=== PATIENT | male | born 1970 | race Caucasian/White ===

== ENCOUNTER 2016-07-23 05:54 | Inpatient (IN) | payer OTHER ==
[~2016-07-23] VITALS: Ht 182.9 cm; Wt 98.3 kg
[2016-07-23] MEDS ORDERED: CHLORHEXIDINE GLUCONATE 2 % 1 PACK (2 CLOTHS) TOPICAL PRN (06:30)
[2016-07-23] MEDS ORDERED: SODIUM CHLORID 0.9% 500 ML IV PRN (06:30)
[2016-07-23] MEDS ORDERED: LACTATED RINGER'S 1000 ML IV PRN (06:30)
[2016-07-23] MEDS ORDERED: ceFAZolin 2 GM PREMIX 50 ML IV SCH (06:30)
[2016-07-23] MEDS ORDERED: POVIDONE IODINE 5% (ANTISEPSIS KIT) 4 APPLICATIONS EACH NARE PRN (06:30)
[2016-07-23] MEDS ORDERED: INSULIN HUMAN REGULAR 1,000 UNITS/10 ML VIAL SQ PRN (06:30)
[2016-07-23] MEDS ORDERED: METOPROLOL TARTRATE 25 MG TAB PO PRN (06:30)
[2016-07-23 06:50] VITALS: BP 120/84; PULSE 86; RESP 20; TEMP 98.1; O2SAT 96
[2016-07-23] MEDS ORDERED: ACETAMINOPHEN 1000 MG/100 ML VIAL IV ONE (06:50)
[2016-07-23 07:09] LABS: PROTHROMBIN TIME - PATIENT 11.5 SEC (9.8-11.6)
[2016-07-23] MEDS ORDERED: MIDAZOLAM HCL 2 MG/2 ML VIAL ONE (07:38)
[2016-07-23] MEDS ORDERED: FAMOTIDINE 20 MG/2 ML VIAL ONE (07:38)
[2016-07-23] MEDS ORDERED: ONDANSETRON HCL 4 MG/2 ML VIAL IV PUSH ONE (12:00)
[2016-07-23] MEDS ORDERED: PHENYLEPH/NS 1000 MCG/10 ML SYR IV ONE (12:00)
[2016-07-23] MEDS ORDERED: MANNITOL 12.5 GM/50 ML VIAL IV ONE (12:00)
[2016-07-23] MEDS ORDERED: NORMOSOL R INJ 3,000 ML IV ONE (12:00)
[2016-07-23] MEDS ORDERED: LACTATED RINGER'S 1000 ML INJ 3,000 ML IV ONE (12:00)
[2016-07-23] MEDS ORDERED: PROPOFOL 200 MG/20 ML AMP IV ONE (12:00)
[2016-07-23 12:25] LABS: BLOOD GAS BASE EXCESS -1.2 mmol/L (-2-2); BLOOD GAS CARBOXYHEMOGLOBIN 1.5 % (0-4); BLOOD GAS HCO3 23 mmol/L (22-26); BLOOD GAS METHEMOGLOBIN 1.4 % (0-2); BLOOD GAS O2 HGB SATURATION 96 % (90-100); BLOOD GAS OXYGEN CONTENT 18.2 Vol % (12.0-20.0); BLOOD GAS PCO2 42 mmHg (38-42); BLOOD GAS PO2 153 mmHg (61-120); BLOOD GAS TOTAL HGB 13.3 G/DL (12.0-16.0); CRITICAL VALUE NO; OXYGEN DEVICE OR; TEMP CORR TO 98.6; VENT SETTINGS OR
[2016-07-23 12:26] LABS: DRAW SITE ALINE; STAT YES
[2016-07-23] MEDS ORDERED: ceFAZolin INJ 1,000 MG VIAL IV ONE (12:30)
[2016-07-23 12:33] LABS: HEMATOCRIT 39.2 % (39.0-51.0); REVIEW FLAG FINAL
[2016-07-23] MEDS: SODIUM CHLOR 0.9% 1000 ML INJ 1,000 ML IV SCH ×2 (12:45→20:56)
[2016-07-23] MEDS ORDERED: fentaNYL CITRATE 250 MCG/5 ML AMP ONE (13:20)
[2016-07-23] MEDS ORDERED: *morphine SULFATE 8 MG/ML PERIprocedure ONLY ONE (13:57)
[2016-07-23] MEDS: ACETAMINOPHEN 1000 MG/100 ML VIAL IV SCH ×2 (14:00→20:54)
[2016-07-23] MEDS: PANTOPRAZOLE SODIUM 40 MG VIAL IV PUSH SCH (15:26)
[2016-07-23 16:00] VITALS: BP 98/61; PULSE 117; RESP 16; TEMP 96.7; O2SAT 90
[2016-07-23 16:58] VITALS: BP 108/57; PULSE 95; RESP 14; TEMP 98; O2SAT 95
[2016-07-23 17:30] VITALS: BP 106/65; PULSE 85; RESP 14; TEMP 99.3; O2SAT 96
[2016-07-23 18:08] LABS: AUTOMATED NEUTROPHIL # 12.6 TH/MM3 (1.8-7.7); HEMO FLAGS DIFF FINAL; LYMPH % 4.8 % (9.0-44.0); LYMPHOCYTE # 0.7 TH/MM3 (1.0-4.8); MEAN CELL VOLUME 86.3 FL (80.0-100.0); MEAN CORPUSCULAR HEMOGLOBIN 28.8 PG (27.0-34.0); MEAN CORPUSCULAR HGB CONC 33.4 % (32.0-36.0); MONO % 4.8 % (0.0-8.0); NEUT % 90.4 % (16.0-70.0); PLATELET COUNT 229 TH/MM3 (150-450); RED BLOOD COUNT 4.63 MIL/MM3 (4.50-5.90); RED CELL DISTRIBUTION WIDTH 13.2 % (11.6-17.2); WHITE BLOOD COUNT 13.9 TH/MM3 (4.0-11.0)
[2016-07-23 18:23] LABS: BICARBONATE 20.8 MEQ/L (21.0-32.0); POTASSIUM 4.6 MEQ/L (3.5-5.1)
[2016-07-23 20:00] VITALS: BP 126/73; PULSE 100; RESP 17; TEMP 97.5; O2SAT 93
[2016-07-23] MEDS: DOCUSATE SODIUM 100 MG CAP PO SCH (20:54)
[2016-07-23 21:34] VITALS: O2SAT 95
[2016-07-23] MEDS: ONDANSETRON HCL 4 MG/2 ML VIAL IV PUSH PRN (21:39)
[2016-07-23] MEDS: MORPHINE SULFATE 4 MG/ML INJ IV PRN (22:49)
--- NOTE | 2016-07-23 23:20 | MP ---
cc: SHADY JAFFE MD DATE OF SURGERY 07/23/16 PREOPERATIVE DIAGNOSIS Left lower pole renal mass POSTOPERATIVE DIAGNOSIS Left lower pole renal mass PROCEDURE PERFORMED Robotic-assisted laparoscopic left partial nephrectomy with intraoperative ultrasound SURGEON James Jaffe MD ANESTHESIA General COMPLICATIONS None. PREOPERATIVE ANTIBIOTICS Ancef 2 grams IV DRAINS 1. A 10-Irish LUNA drain. 2. 6 Irish Roa catheter gravity drainage. SPECIMENS Left renal mass for frozen and permanent BLOOD LOSS 300 mL FLUIDS 5 liters DISPOSITION Stable to recovery INDICATIONS The patient is a 45-year-old male who was found to have an incidental left renal mass. Treatment options were discussed including active surveillance versus radioablation versus cryoablation versus partial nephrectomy versus open radical nephrectomy. Advantages and disadvantages, potential side effects of each option were discussed. He elected to proceed with laparoscopic left partial nephrectomy. After risks, benefits and alternatives were explained to patient, patient would like to proceed. Informed consent was obtained. PROCEDURE IN DETAIL The patient was properly identified, brought back to the Operating room, laid supine on the operating table. Proper time-out was performed. Under direction of anesthesiology, the patient was intubated and induced under general aesthetic. Preoperative antibiotics in the form of Ancef 2 grams IV were given one hour prior to start of the procedure. The patient was then placed in right lateral decubitus position with left side up in modified flank. All pressure points were padded. He was then prepped, draped in normal sterile surgical fashion. A stab incision was made superior and lateral to the umbilicus towards the patient's left side. A Veress needle was then used to gain entrance into abdominal cavity. Pneumoperitoneum was then easily achieved. Under direct visualization, I then passed the 12 mm camera port into the abdominal cavity. The intra-abdominal cavity was inspected and there was no evidence of any intra-abdominal injury. At this time, the remaining ports were then placed under direct visualization. This included two 8 mm robotic ports triangulated off of the camera port as well as two 12 mm dental assistant instructor ports in the midline, one superior to the umbilicus, one inferior to umbilicus. At this time next the robot was then brought into position. I began by taking down the small adhesions near the spleen. I then was able to reflect the colon medially by taking down the white line of Toldt. This exposed the retroperitoneum. I dissected away the mesentery of the bowel this further exposed the retroperitoneum and I was able to easily see the gonadal vein and ureter. I then developed a plane between the psoas muscle and these structures. I then retracted the kidney anteriorly towards the abdominal wall. I then followed the gonadal vein up to the attachment of the left renal vein. The patient had several smaller accessory veins. The robotic vessel sealer was then used to take these veins. I also did take the left gonadal vein as it was hindering retraction and exposure to the renal hilum. At this time, I then carefully dissected out the left renal vein and artery separately and circumferentially. At this point, I then turned my attention to removing the perinephric fat to expose the capsule of the kidney. The patient had a significant amount of sticky fat which made removing the fat slightly difficult. However, with a combination of blunt dissection and electrocautery I was then able to expose the capsule of the kidney. I then came across this exophytic tumor on the lower pole and lateral left side on the left kidney. I used intraoperative ultrasound to identify the boundaries in the depth of the tumor. These were then scored on the renal capsule. At this time, I had anesthesia give 12.5 grams of mannitol through the IV. As I further dissected the fat off of the tumor, the spleen was stuck on the fat and I did cause a small laceration into the renal capsule. This was controlled with electrocautery and Surgicel. The tumor was dissected around circumferentially and the fat was removed. I used a laparoscopic bulldog to clamp the renal artery. The tumor was then removed in its entirety with cold cut scissors. There was minimal bleeding at this time. The tumor was then placed in an EndoCatch bag for later removal. I then repaired the renal defect with 1-0 Vicryl sutures with Hemolock and ties to cinch down the suture to repair the renal defect. The tumor was sent down to pathology in which a frozen section was done which pathologist did confirm it was a RCC with a negative margin. The total clamp time was 20:34. At thispoint, the insufflation was then brought down to 7 mmHg. There was minimalbleeding. Surgicel was then applied to the renal defect. The perinephric fat was then closed with a 2-0 Stratifix double ended suture. The spleen was investigated once again and appeared to be dry with no evidence of any bleeding. At this time, a LUNA drain was then placed through the lower robotic port. It was secured with a 3-0 nylon. All ports were removed under direct visualization. There was no evidence of any bleeding at this time. All skin incisions were closed with Vicryl and Monocryl sutures. This concluded the procedure. The patient was extubated and sent to recovery in stable condition. He will be transferred to the floor for routine postoperative care. MD LAYA Guardado/ /5:55 PM /10:58 PM MTDD
[2016-07-24] VITALS (8 sets, daily range): BP systolic 101–120; BP diastolic 66–73; PULSE 85–96; RESP 16–22; TEMP 96.8–99; O2SAT 92–97
[2016-07-24] MEDS: ACETAMINOPHEN 1000 MG/100 ML VIAL IV SCH ×4 (02:00→20:08)
[2016-07-24] MEDS: SODIUM CHLOR 0.9% 1000 ML INJ 1,000 ML IV SCH ×3 (04:25→20:09)
[2016-07-24] MEDS: ONDANSETRON HCL 4 MG/2 ML VIAL IV PUSH PRN (05:25)
[2016-07-24] MEDS: MORPHINE SULFATE 4 MG/ML INJ IV PRN ×2 (06:21→20:09)
[2016-07-24 06:23] LABS: AUTOMATED NEUTROPHIL # 7.9 TH/MM3 (1.8-7.7); BASOPHIL % 0.2 % (0.0-2.0); HEMATOCRIT 39.4 % (39.0-51.0); HEMO FLAGS DIFF FINAL; LYMPH % 10.2 % (9.0-44.0); MEAN CELL VOLUME 86.8 FL (80.0-100.0); MEAN CORPUSCULAR HEMOGLOBIN 30.4 PG (27.0-34.0); MONO % 9.8 % (0.0-8.0); NEUT % 79.8 % (16.0-70.0); PLATELET COUNT 206 TH/MM3 (150-450); RED BLOOD COUNT 4.54 MIL/MM3 (4.50-5.90); RED CELL DISTRIBUTION WIDTH 13.2 % (11.6-17.2); WHITE BLOOD COUNT 9.9 TH/MM3 (4.0-11.0)
[2016-07-24 06:40] LABS: BICARBONATE 26.6 MEQ/L (21.0-32.0)
[2016-07-24] MEDS: DOCUSATE SODIUM 100 MG CAP PO SCH ×2 (07:35→20:07)
--- NOTE | 2016-07-24 13:10 | HHI.PR ---
Subjective Patient symptoms today had some nausea, lower back pain last night, but improved today. Passing Flatus. [place] lightheaded when he stood up. Denies CP/SOB/Fevers/Chills. Voiding on own. Objective Vital Signs Vital Signs Date Time Temp Pulse Resp B/P Pulse Ox O2 Delivery O2 Flow Rate FiO2 07/24/16 12:00 97.7 85 20 101/72 96 07/24/16 10:48 96 Nasal Cannula 3.00 07/24/16 08:00 98.6 90 22 110/66 97 07/24/16 04:00 96.8 91 17 116/68 94 07/24/16 00:00 97.8 94 17 120/69 95 07/23/16 21:34 95 Nasal Cannula 3.00 07/23/16 20:00 97.5 100 17 126/73 93 07/23/16 17:30 99.3 85 14 106/65 96 07/23/16 16:58 98.0 95 14 108/57 95 07/23/16 16:00 96.7 117 16 98/61 90 07/23/16 14:15 82 23 133/71 94 Nasal Cannula 3 07/23/16 14:00 89 23 128/60 93 Nasal Cannula 3 07/23/16 13:45 84 23 119/57 93 Nasal Cannula 3 07/23/16 13:30 80 23 128/59 92 Nasal Cannula 3 07/23/16 13:15 84 23 127/69 94 Nasal Cannula 3 07/23/16 13:10 97.7 87 23 131/73 91 Nasal Cannula 3 Intake & Output 07/24/16 07/24/16 07:00 19:00 Intake Total 2214 ml Output Total 3210 ml Balance -996 ml Intake Oral 480 ml IV Total 1734 ml Output Urine Total 3100 ml Drainage Total 110 ml Result Diagram: 07/24/1652207/24/16522 Objective Remarks NAD. A/O x 3 CTAB RRR abd soft, appropriately tender, mild distention. Inc c/d/i. LUNA draining serous. Ext NT. No c/c/e Medications and IVs Current Medications Medications (Trade) Dose Ordered Sig/Luisa Route Start Time Stop Time Status Last Admin Lactated Ringer's 1,000 ml @ 30 mls/hr Q24H PRN IV 07/23/16 06:30 07/26/16 06:29 07/23/16 06:35 Sodium Chloride 500 ml @ 30 mls/hr [id number] PRN IV 07/23/16 06:30 07/26/16 06:29 (NS 1000 ml Inj) 1,000 ml @ 125 mls/hr Q8H IV 07/23/16 12:45 07/24/16 11:31 (Ofirmev Inj) 1,000 mg Q6H IV 07/23/16 14:00 07/24/16 07:35 (Roxicodone) 10 mg Q4H PRN PO 07/23/16 12:45 07/24/16 05:25 (Roxicodone) 5 mg Q4H PRN PO 07/23/16 12:45 07/24/16 12:10 Docusate Sodium 100 mg 100 mg BID PO 07/23/16 21:00 07/24/16 07:35 (Ancef Inj/NS Inj) 100 ml @ 200 mls/hr Q8H IV 07/23/16 20:00 07/24/16 11:31 (Protonix Inj) 40 mg Q24H IV PUSH 07/23/16 15:00 07/23/16 15:26 (Zofran Inj) 4 mg Q6HR PRN IV PUSH 07/23/16 12:45 07/24/16 05:25 (Morphine Inj) 3 mg Q3H PRN IV 07/23/16 23:00 07/24/16 06:21 Assessment and Plan Assessment and Plan POD#1 s/p Left Robotic Partial Nephrectomy -Hgb stable. Repeat in a.m. -d/c telemetry -continue clears. -Repeat BMP in A.M. -LUNA creatinine serum. No evidence of urine leak. -GI/DVT prophylaxis -Ambulate Parag Patel MD July 24, 2016 13:10
[2016-07-24] MEDS: PANTOPRAZOLE SODIUM 40 MG VIAL IV PUSH SCH (13:44)
[2016-07-25] VITALS (8 sets, daily range): BP systolic 118–128; BP diastolic 68–77; PULSE 83–97; RESP 16–20; TEMP 98.2–99.3; O2SAT 92–95
[2016-07-25] MEDS: ACETAMINOPHEN 1000 MG/100 ML VIAL IV SCH (02:14)
[2016-07-25] MEDS: SODIUM CHLOR 0.9% 1000 ML INJ 1,000 ML IV SCH ×3 (04:45→21:14)
[2016-07-25 05:32] LABS: MEAN CELL VOLUME 87.5 FL (80.0-100.0); MEAN CORPUSCULAR HEMOGLOBIN 29.4 PG (27.0-34.0); MEAN CORPUSCULAR HGB CONC 33.6 % (32.0-36.0); PLATELET COUNT 173 TH/MM3 (150-450); RED BLOOD COUNT 4.11 MIL/MM3 (4.50-5.90); RED CELL DISTRIBUTION WIDTH 13.2 % (11.6-17.2); REVIEW FLAG FINAL; WHITE BLOOD COUNT 8.5 TH/MM3 (4.0-11.0)
[2016-07-25 05:44] LABS: POTASSIUM 3.9 MEQ/L (3.5-5.1)
[2016-07-25] MEDS ORDERED: oxyCODONE/ACETAMINOPHEN 5 MG/325 MG TAB PO PRN (08:45)
[2016-07-25] MEDS: DOCUSATE SODIUM 100 MG CAP PO SCH ×2 (09:00→21:00)
[2016-07-25] MEDS: PANTOPRAZOLE SOD 40 MG DELAYED RELEASE TAB PO SCH (09:33)
[2016-07-25] MEDS: oxyCODONE/ACETAMINOPHEN 5 MG/325 MG TAB PO PRN ×4 (13:38→22:32)
[2016-07-25] MEDS: ONDANSETRON HCL 4 MG/2 ML VIAL IV PUSH PRN (13:38)
--- NOTE | 2016-07-25 16:46 | HHI.PR ---
Subjective Patient symptoms today doing better today. pain controlled with Percocet. Ambulated. Denies CP/SOB. Voiding on own. Tolerating regular diet. PAssing Flatus. Objective Vital Signs Vital Signs Date Time Temp Pulse Resp B/P Pulse Ox O2 Delivery O2 Flow Rate FiO2 07/25/16 13:25 98.2 07/25/16 12:00 99.3 97 16 118/68 92 07/25/16 09:40 95 07/25/16 08:00 99.1 83 16 120/75 93 07/25/16 00:00 99.0 94 18 123/73 94 07/24/16 21:58 95 Nasal Cannula 2.00 07/24/16 20:00 99.0 96 20 116/73 92 Intake & Output 07/25/16 07/25/16 07:00 19:00 Intake Total 2445 ml 963 ml Output Total 1990 ml 1655 ml Balance 455 ml -692 ml Intake Oral 360 ml 360 ml IV Total 2085 ml 603 ml Output Urine Total 1900 ml 1625 ml Drainage Total 90 ml 30 ml # Bowel Movements 0 Result Diagram: 07/25/16 0501 07/25/16 0501 Objective Remarks NAD. A/O x 3 CTAB RRR abd soft, appropriately tender, mild distention. Inc c/d/i. LUNA draining serous. Ext NT. No c/c/e Medications and IVs Current Medications Medications (Trade) Dose Ordered Sig/Luisa Route Start Time Stop Time Status Last Admin Lactated Ringer's 1,000 ml @ 30 mls/hr Q24H PRN IV 07/23/16 06:30 07/26/16 06:29 07/23/16 06:35 Sodium Chloride 500 ml @ 30 mls/hr [id number] PRN IV 07/23/16 06:30 07/26/16 06:29 (NS 1000 ml Inj) 1,000 ml @ 83 mls/hr Q12H3M IV 07/23/16 12:45 07/25/16 09:33 (Colace) 100 mg BID PO 07/23/16 21:00 07/24/16 20:07 (Zofran Inj) 4 mg Q6HR PRN IV PUSH 07/23/16 12:45 07/25/16 13:38 (Morphine Inj) 3 mg Q3H PRN IV 07/23/16 23:00 07/24/16 20:09 (Percocet 5-325 Mg) 2 tab Q4H PRN PO 07/25/16 08:45 07/25/16 13:38 (Percocet 5-325 Mg) 1 tab Q4H PRN PO 07/25/16 08:45 (Protonix) 40 mg DAILY PO 07/25/16 09:00 07/25/16 09:33 Assessment and Plan Assessment and Plan POD#2 s/p Left Robotic Partial Nephrectomy -Hgb stable. -Regular diet.. -LUNA creatinine serum. No evidence of urine leak. D/C in a.m. -GI/DVT prophylaxis -Ambulate -likely d/c home tomorrow. Parag Patel MD July 25, 2016 16:46
[2016-07-26] VITALS: BP 136/84; PULSE 91; RESP 20; TEMP 99.2; O2SAT 94
[2016-07-26] MEDS: MORPHINE SULFATE 4 MG/ML INJ IV PRN ×2 (03:01→06:14)
[2016-07-26 08:00] VITALS: BP 133/86; PULSE 81; RESP 20; TEMP 97.6; O2SAT 94
[2016-07-26] MEDS: PANTOPRAZOLE SOD 40 MG DELAYED RELEASE TAB PO SCH (08:04)
[2016-07-26] MEDS: oxyCODONE/ACETAMINOPHEN 5 MG/325 MG TAB PO PRN ×2 (08:09→14:12)
[2016-07-26] MEDS: DOCUSATE SODIUM 100 MG CAP PO SCH (09:00)
[2016-07-26 12:00] VITALS: BP 134/81; PULSE 87; RESP 19; TEMP 97.5; O2SAT 92
[2016-07-26] MEDS: SODIUM CHLOR 0.9% 1000 ML INJ 1,000 ML IV SCH (14:12)
[2016-07-26 16:00] VITALS: BP 113/75; PULSE 82; RESP 18; TEMP 97.1; O2SAT 92
[2016-07-26] MEDS ORDERED: OXYC1TAB63 PO (16:49)
[2016-07-26] MEDS ORDERED: DOCU1CAP39 PO (16:49)
--- NOTE | 2016-07-26 16:54 | HHI.DS ---
Discharge Summary Admission Date July 23, 2016 at 15:15 Discharge Date: July 26, 2016 Admitting Diagnosis Procedures Left Robotic PArtial Nephrectomy CBC/BMP: 07/25/16 0501 07/25/16 0501 Significant Findings Laboratory Tests Test 07/23/16 07/24/16 07/25/16 17:54 05:23 05:01 White Blood Count 13.9 TH/MM3 (4.0-11.0) Neutrophils (%) (Auto) 90.4 % 79.8 % (16.0-70.0) (16.0-70.0) Lymphocytes (%) (Auto) 4.8 % (9.0-44.0) Neutrophils # (Auto) 12.6 TH/MM3 7.9 TH/MM3 (1.8-7.7) (1.8-7.7) Lymphocytes # (Auto) 0.7 TH/MM3 (1.0-4.8) Sodium Level 134 MEQ/L (136-145) Carbon Dioxide Level 20.8 MEQ/L (21.0-32.0) Estimat Glomerular Filtration 61 ML/MIN (>89) 53 ML/MIN (>89) 72 ML/MIN (>89) Rate Random Glucose 135 MG/DL (74-106) Calcium Level 8.1 MG/DL 8.1 MG/DL 8.2 MG/DL (8.5-10.1) (8.5-10.1) (8.5-10.1) Monocytes (%) (Auto) 9.8 % (0.0-8.0) Monocytes # (Auto) 1.0 TH/MM3 (0-0.9) Creatinine 1.42 MG/DL (0.60-1.30) Red Blood Count 4.11 MIL/MM3 (4.50-5.90) Hemoglobin 12.1 GM/DL (13.0-17.0) Hematocrit 36.0 % (39.0-51.0) Hospital Course 45 yo male was admitted following a Left robotic PArtial Nephrectomy. He had an uncomplicated course. Roa was removed on POD #1. LUNA Creatinine was serum. The drain was removed. He was discharged home on POD# 3 after tolerating regular diet and having a bowel movement. Pt Condition on Discharge: Good Discharge Disposition: Discharge Home Discharge Instructions DIET: Follow Instructions for: As Tolerated, No Restrictions Activities you can perform: Shower Only-No Bath Activities to avoid: Strenuous Activity, Bathing Additional Activity Instructio: No driving while on narocitc pain medication No heavy lifting greater than 15 lbs x 4 weeks No lawn mowing x 2 weeks. No Refereeing of Lacross Games x 4 weeks. Parag Patel MD July 26, 2016 16:54
== END 2016-07-26 18:24 | disposition home or self-care (01) | DRG 658 ==
LOC: HSDC 05:54 → N07A 15:11 → HSDC 15:11 → N07A 15:15
PROVIDERS: ADMIT Urology; ATTEND Urology
PROC: 8E0W4CZ Robotic Assisted Procedure of Trunk Region, Percutaneous Endoscopic Approach (ICD-10-PCS; 2016-07-23)
PROC: 0TB14ZZ Excision of Left Kidney, Percutaneous Endoscopic Approach (ICD-10-PCS; principal; 2016-07-23 07:52)
DX: C64.2 Malignant neoplasm of left kidney, except renal pelvis (principal)
CPT/HCPCS: 76998; 80048; 82570; 82805; 85014; 85018; 85025; 85027; 85610; 86850; 86900; 86901; 86920; 88307; 88331; 94150; C9113; J0131; J0690; J2150; J2250; J2270; J2370; J2405; J3010; J7030; J7120